=== PATIENT | male | born 2000 | race African-American/Black ===

== ENCOUNTER 2021-01-07 22:25 | Emergency (ER) | payer OTHER ==
--- NOTE | 2021-01-07 23:08 | ED ---
Male Urogenital HPI - General Chief complaint: Urogenital Stated complaint: Possible STD Time Seen by Provider: 01/07/21 22:56 Source: patient Mode of arrival: ambulatory - History of Present Illness Initial comments: 20-year-old male presents emergency Department with chief complaint of general itching. States this started. Since he returned from his most medication should. Patient reports symptoms for the past 2 days with general itching particularly in the pubic area. He denies any insects to the region. Denies any testicular pain, swelling, lesions. Denies increased urgency or frequency. Denies any penile discharge. Does report having protected sex with multiple females. He denies any fever chills. - Related Data Previous Rx's Medication Instructions Recorded Permethrin 5% Cream [Elimite] 1 applic TOPICAL ONCE #60 gram 01/07/21 Allergies Allergy/AdvReac Type Severity Reaction Status Date / Time No Known Allergies Allergy Verified 01/07/21 22:48 Review of Systems ROS Statement: Those systems with pertinent positive or pertinent negative responses have been documented in the HPI. ROS Other: All systems not noted in ROS Statement are negative. Past Medical History Past Medical History: No Reported History History of Any Multi-Drug Resistant Organisms: None Reported Past Surgical History: No Surgical Hx Reported Past Psychological History: No Psychological Hx Reported Smoking Status: Never smoker Past Alcohol Use History: Occasional Past Drug Use History: Marijuana General Exam Limitations: no limitations General appearance: alert, in no apparent distress Head exam: Present: atraumatic, normocephalic, normal inspection Eye exam: Present: normal appearance, PERRL, EOMI Pupils: Present: normal accommodation ENT exam: Present: normal exam, normal oropharynx, mucous membranes moist Neck exam: Present: normal inspection, full ROM. Absent: tenderness, lymphadenopathy Respiratory exam: Present: normal lung sounds bilaterally. Absent: respiratory distress Cardiovascular Exam: Present: regular rate, normal rhythm, normal heart sounds. Absent: diastolic murmur GI/Abdominal exam: Present: soft. Absent: distended, tenderness, guarding, rebound, rigid exam: Present: normal inspection (Itching in the pubic hair. No insects were noted. No lesions. No penile discharge testicular pain or swelling). Absent: testicular tenderness, urethral discharge, scrotal swelling, vertical testicular lie Extremities exam: Present: normal inspection, full ROM. Absent: tenderness Back exam: Present: normal inspection, full ROM. Absent: tenderness Neurological exam: Present: alert, oriented X3 Psychiatric exam: Present: normal affect, normal mood Skin exam: Present: warm, dry, intact, normal color Course Vital Signs 01/07/21 01/07/21 22:45 23:30 Temperature 98 F 98.0 F Pulse Rate 75 76 Respiratory 19 18 Rate Blood Pressure 118/71 116/72 O2 Sat by Pulse 98 98 Oximetry Medical Decision Making - Medical Decision Making 20-year-old male presents to emergency department with a chief complaint of general itching. Physical examination is unremarkable. I suspect pubic lice to be the cause of his symptoms. Patient will be started on permethrin. Gonorrhea, chlamydia, Trichomonas pending. Patient advised to go to the [facility] for further STD testing. Case discussed with physician. Disposition Clinical Impression: Genital pruritus Disposition: HOME SELF-CARE Condition: Stable Instructions (If sedation given, give patient instructions): Pubic Lice (ED) Additional Instructions: Use prescribed medication as directed Prescriptions: Permethrin 5% Cream [Elimite] 1 applic TOPICAL ONCE #60 gram Is patient prescribed a controlled substance at d/c from ED?: No Referrals: None,Stated [Primary Care Provider] - 1-2 days Time of Disposition: 23:07
[2021-01-07 23:38] VITALS: BP 116/72; PULSE 76; RESP 18; TEMP 98
[2021-01-08 13:49] LABS: C. trachomatis,PCR Negative (Neg,Equiv); Chlamydia trachomatis Source Urine; N. gonorrhoeae,PCR Negative (Neg,Equiv); Neisseria Source Urine
== END 2021-01-07 23:30 | disposition home or self-care (01) ==
LOC: EC 22:25
DX: L29.8 Other pruritus (principal)
CPT/HCPCS: 87491; 87591; 99283